=== PATIENT | female | born 1965 | race Caucasian/White ===

== ENCOUNTER 2016-05-29 16:35 | Emergency (ER) | payer OTHER ==
[~2016-05-29] VITALS: Ht 167.6 cm; Wt 114.0 kg
[~2016-05-29 16:35] MED LIST: ACET1TAB40 PO; ALBU18HF IH; AUG875 PO; BEN25 PO; CYCL-319 PO; HYDR-3498 PO; IBUP-1542 PO; LORA10CA PO; LOSA100T7 PO; MED4DP PO; METO25TA4 PO; MOME13HF IH; MONT10TA24 PO; OSLT75C PO; PRED20TA PO; PRED50TA PO; TIOT18CA IH; TRAM50TA2 PO
[2016-05-29 16:38] VITALS: Ht 167.6 cm; Wt 114.0 kg
[2016-05-29 22:29] LABS: ADD SCAN DIFF NO
[2016-05-29 22:30] VITALS: TEMP 98.6
[2016-05-29] MEDS ORDERED: LABETALOL HCL 20MG INJ IV ONE (22:30)
[2016-05-29 22:39] LABS: BASOPHIL # 0.1 10^3/ul (0.0-0.1); BASOPHILS % 0.9 % (0.0-2.0); EOSINOPHILS # 0.2 10^3/ul (0.0-0.5); EOSINOPHILS % 3.7 % (0.0-7.0); HEMATOCRIT 43.3 % (37.0-47.0); HEMOGLOBIN 14.1 g/dl (12.0-16.0); LYMPHOCYTES # 1.7 10^3/ul (0.8-2.9); LYMPHOCYTES % 28.4 % (15.0-51.0); MEAN CORPUSCULAR HEMOGLOBIN 27.2 pg (29.0-33.0); MEAN CORPUSCULAR HGB CONC 32.6 g/dl (32.0-37.0); MEAN CORPUSCULAR VOLUME 83.4 fl (82.0-101.0); MEAN PLATELET VOLUME 11.1 fl (7.4-10.4); MONOCYTE # 0.6 10^3/ul (0.3-0.9); MONOCYTES % 10.7 % (0.0-11.0); NEUTROPHIL # 3.3 10^3/ul (1.6-7.5); NEUTROPHILS % 55.8 % (39.0-77.0); PLATELET COUNT 292 10^3/UL (140-415); RED BLOOD COUNT 5.19 10^6/ul (4.20-5.40); RED CELL DISTRIBUTION WIDTH 13.6 % (11.5-14.5); WHITE BLOOD COUNT 5.9 10^3/ul (4.8-10.8)
[2016-05-29 22:41] LABS: ALBUMIN 4.4 g/dl (3.3-4.9); CHLORIDE 96 mmol/L (97-110); SODIUM 140 mmol/L (135-144)
[2016-05-29] MEDS ORDERED: RAMI5CAP46 PO (22:41)
[2016-05-29] MEDS ORDERED: FLUT1AER INHALATION (22:41)
[2016-05-29] MEDS ORDERED: BENA20TA48 PO (22:41)
[2016-05-29 22:42] LABS: POTASSIUM 3.5 mmol/L (3.5-5.1)
[2016-05-29] MEDS ORDERED: METH10TA5 PO (22:42)
[2016-05-29] MEDS ORDERED: HYDR50TA3 PO (22:42)
[2016-05-29 22:43] LABS: INR 0.92; PROTIME 12.4 Sec (12.2-14.2)
[2016-05-29 22:44] LABS: ALANINE AMINOTRANSFERASE 56 IU/L (13-69); ALBUMIN/GLOBULIN RATIO 1.18; ALKALINE PHOSPHATASE 85 IU/L (42-121); ANION GAP 16 (8-16); ASPARTATE AMINO TRANSFERASE 54 IU/L (15-46); BILIRUBIN,INDIRECT 0.2 mg/dl (0-1.1); BILIRUBIN,TOTAL 0.2 mg/dl (0.2-1.3); BLOOD UREA NITROGEN 12 mg/dl (7-20); CARBON DIOXIDE 32 mmol/L (21-31); CREATININE 0.45 mg/dl (0.44-1.00); GLUCOSE 105 mg/dl (70-220); PARTIAL THROMBOPLASTIN TIME 28.8 Sec (25.0-35.0); TOTAL PROTEIN 8.1 g/dl (6.1-8.1)
[2016-05-29 22:45] LABS: CALCIUM 9.7 mg/dl (8.4-10.2)
[2016-05-29 22:53] LABS: B-TYPE NATRIURETIC PEPTIDE 43 PG/ML (0-125)
[2016-05-29] MEDS ORDERED: FUROSEMIDE 40 MG INJ IV ONE (23:00)
--- NOTE | 2016-05-29 23:05 | ERD ---
ER Documentation Chief Complaint Date/Time DATE: 05/29/16 TIME: 22:56 Chief Complaint complains of weakness, tired and swelling of the lower extremities HPI 51-year-old female with a history of hypertension, hyperthyroidism, asthma, and diastolic heart dysfunction grade 1 presenting with bilateral lower extremity swelling for about 4 days. She was seen by long chain quiller tender 1 week ago and was started on amlodipine and furosemide. After she started these medications, she feels like her leg started swelling. She went to her primary care doctor yesterday who told her to stop those medications and start benazepril. She also stopped her hydrochlorothiazide. the patient went to fill her benazepril but has not taken it yet. Today she came in because her swelling is getting worse instead of better and she has associated pain in her legs from the swelling. She also complains of generalized body aches and mild headache. No chest pain or shortness of breath. No dizziness, vision disturbance, or diaphoresis. She is urinating normally. ROS All systems reviewed and are negative except as per history of present illness. Medications Home Meds Reported Medications Hydrochlorothiazide* (Hydrochlorothiazide*) 50 Mg Tab, 50 MG PO DAILY, #30 TAB 05/29/16 Methimazole* (Methimazole*) 10 Mg Tablet, 10 MG PO DAILY, TAB 05/29/16 Ramipril (Ramipril) 5 Mg Capsule, 5 MG PO DAILY, CAP 05/29/16 Fluticasone-Vilanterol (Breo Ellipta Inhaler) 100-25 Mcg/Actuation Aer.pow.ba, 1 PUFF INHALATION DAILY, #1 INHALER 05/29/16 Benazepril Hcl* (Benazepril Hcl*) 20 Mg Tablet, 20 MG PO DAILY, #30 TAB 05/29/16 Discontinued Reported Medications Losartan Potassium* (Losartan Potassium*) 100 Mg Tablet, 100 MG PO DAILY, TAB 03/06/15 Montelukast Sodium* (Montelukast Sodium*) 10 Mg Tablet, 10 MG PO HS, TAB 03/23/14 Mometasone-Formoterol (Dulera) 200-5 Mcg/Inh - 13 Gm Hfa.aer.ad, 2 PUFFS IH BID , EA 03/23/14 Tiotropium [place]* (Spiriva*) 18 Mcg Cap.w.dev, 1 INH IH QAM, EA 03/23/14 Albuterol Sulfate* (Ventolin HFA*) 18 Gm Hfa.aer.ad, 2 PUFF IH DAILY Y for WHEEZING AND RESP DISTRESS, EA 03/23/14 Discontinued Scripts Tramadol HCl (Tramadol HCl) 50 Mg Tablet, 50 MG PO Q4 Y for PAIN, #20 TAB Prov:EMELIA JENNINGS MD 09/24/15 Methylprednisolone* (Medrol* DOSE PACK) 4 Mg/Dose-Pack Tab.ds.pk, 4 MG PO . DIRECTED for 6 Days, PACKET Prov:SELVIN MONK 08/10/15 Oseltamivir Phosphate* (Tamiflu*) 75 Mg Capsule, 75 MG PO BID for 5 Days, CAP Prov:YOEL MCNALLY S. 07/17/15 Prednisone* (Prednisone*) 20 Mg Tab, 40 MG PO DAILY for 4 Days, TAB Prov:YOEL MCNALLY S. 07/17/15 Prednisone* (Prednisone*) 50 Mg Tablet, 50 MG PO DAILY, #7 TAB Prov:MORELIA IRAHETA DO 03/06/15 Diphenhydramine Hcl* (Benadryl*) 25 Mg Cap, 25 MG PO Q6, #30 CAP Prov:MORELIA IRAHETA DO 03/06/15 Metoprolol Tartrate* (Lopressor*) 25 Mg Tablet, 25 MG PO BID, #60 TAB Prov:MORELIA IRAHETA DO 03/06/15 Loratadine* (Claritin*) 10 Mg Capsule, 10 MG PO DAILY, #30 CAP Prov:MORELIA IRAHETA DO 03/06/15 Amoxicillin-Clavulanate K* (Augmentin*) 875 Mg Tab, 875 MG PO BID, #20 TAB Prov:MORELIA IRAHETA DO 03/06/15 Acetaminophen-Codeine* (Acetaminophen-Cod #3*) 300-30 Mg Tab, 1 TAB PO Q4H Y for PAIN, #20 TAB Prov:MORELIA IRAHETA DO 03/06/15 Cyclobenzaprine Hcl* (Cyclobenzaprine Hcl*) 10 Mg Tablet, 10 MG PO TID, #20 TAB Prov:EMELIA JENNINGS MD 01/16/15 Hydrocodone Bit-Acetaminophen* ([place]*) 5-325 Mg Tab, 1 TAB PO Q6 Y for PAIN, # 14 TAB Prov:EMELIA JENNINGS MD 01/16/15 Ibuprofen* (Motrin*) 600 Mg Tab, 600 MG PO Q6, #20 TAB Prov:EMELIA JENNINGS MD 01/16/15 Allergies Allergies: Coded Allergies: No Known Drug Allergies (Verified Allergy, Unknown, 05/29/16) PMhx/Soc History of Surgery: Yes ( 2005, Sinus Sx) Anesthesia Reaction: No Hx Neurological Disorder: No (HYPOTHYROID) Hx Respiratory Disorders: Yes (Asthma) Hx Cardiac Disorders: Yes (HTN) Hx Psychiatric Problems: No (Depression) Hx Miscellaneous Medical Probl: No (Thyroid) Hx Alcohol Use: No Hx Substance Use: No Hx Tobacco Use: No FmHx Family History: No diabetes Physical Exam Vitals Vital Signs Date Time Temp Pulse Resp B/P Pulse Ox O2 Delivery O2 Flow Rate FiO2 05/29/16 23:53 83 17 133/63 97 Room Air 05/29/16 23:10 77 15 176/89 100 Room Air 05/29/16 22:30 98.6 73 20 188/93 98 Room Air 05/29/16 16:38 98.6 83 20 235/110 98 Physical Exam Const: Obese, no apparent distress, nontoxic Head: Atraumatic Eyes: Normal Conjunctiva, Krista, EOMI ENT: Normal External Ears, Nose and Mouth. Neck: Full range of motion No meningismus. Resp: Clear to auscultation bilaterally Cardio: Regular rate and rhythm, no murmurs Abd: Soft, non tender, non distended. Normal bowel sounds Skin: No petechiae or rashes Back: No midline or flank tenderness Ext: No cyanosis. 1+ pitting edema up to mid miguel. 2+ radial pulses bilaterally. 2+ DP and PT pulses bilaterally. Neur: Awake and alert and oriented 3, cranial nerves intact, strength and sensations intact in all 4 extremities, normal gait Psych: Normal Mood and Affect Result Diagram: 05/29/16221705/29/162217 Results 24 hrs Laboratory Tests Test 05/29/16 22:18 05/29/16 22:40 Activated Partial Thromboplast Time 28.8Sec Alanine Aminotransferase (ALT/SGPT) 56IU/L Albumin 4.4g/dl Albumin/Globulin Ratio 1.18 Alkaline Phosphatase 85IU/L Anion Gap 16 Aspartate Amino Transf (AST/SGOT) 54IU/L B-Type Natriuretic Peptide 43PG/ML Basophils # 0.110^3/ul Basophils % 0.9% Blood Urea Nitrogen 12mg/dl Calcium Level 9.7mg/dl Carbon Dioxide Level 32mmol/L Chloride Level 96mmol/L Creatinine 0.45mg/dl Direct Bilirubin 0.00mg/dl Eosinophils # 0.210^3/ul Eosinophils % 3.7% Globulin 3.70g/dl Glucose Level 105mg/dl Hematocrit 43.3% Hemoglobin 14.1g/dl INR International Normalized Ratio 0.92 Indirect Bilirubin 0.2mg/dl Lymphocytes # 1.710^3/ul Lymphocytes % 28.4% Mean Corpuscular Hemoglobin 27.2pg Mean Corpuscular Hemoglobin Concent 32.6g/dl Mean Corpuscular Volume 83.4fl Mean Platelet Volume 11.1fl Monocytes # 0.610^3/ul Monocytes % 10.7% Neutrophils # 3.310^3/ul Neutrophils % 55.8% Nucleated Red Blood Cells # 0.010^3/ul Nucleated Red Blood Cells % 0.0/100WBC Platelet Count 43316^3/UL Potassium Level 3.5mmol/L Prothrombin Time 12.4Sec Prothrombin Time Ratio 1.0 Red Blood Count 5.1910^6/ul Red Cell Distribution Width 13.6% Sodium Level 140mmol/L Total Bilirubin 0.2mg/dl Total Protein 8.1g/dl Troponin I < 0.012ng/ml White Blood Count 5.910^3/ul Urine Bacteria FEW Urine Bilirubin NEGATIVE Urine Clarity SLIGHTLY CLOUDY Urine Color LT. YELLOW Urine Glucose NEGATIVE% Urine Hemoglobin TRACE Urine Ketones NEGATIVE Urine Leukocyte Esterase 1+ Urine Microscopic RBC 0-2/HPF Urine Microscopic WBC 2-5/HPF Urine Nitrite NEGATIVE Urine Specific [place] 1.010 Urine Squamous Epithelial Cells MODERATE Urine Total Protein NEGATIVE Urine Urobilinogen 0.2 E.U./dL Urine pH 7.5 Current Medications Medications (Trade) Dose Ordered Sig/Edson Route PRN Reason Start Time Stop Time Status Last Admin Dose Admin Labetalol HCl (Labetalol) 20 mg ONCE ONCE IV 05/29/16 22:30 05/29/16 22:31 DC Furosemide (Lasix) 40 mg ONCE ONCE IV 05/29/16 23:00 05/29/16 23:01 DC 05/29/16 23:15 Procedures/MDM EKG #1: Rate/Rhythm: Normal Sinus Rhythm QRS, ST, T-waves: Nonspecific ST and T abnormality, no ST elevation Impression: No evidence of ischemia or arrhythmia EKG #2: Rate/Rhythm: Normal Sinus Rhythm QRS, ST, T-waves: No changes consistent w/ acute ischemia Impression: No evidence of ischemia or arrhythmia I reviewed the patient's old medical records and her last echo was done in 2013 and showed diastolic grade 1 dysfunction of her heart within normal ejection fraction of 60%. Patient is reportedly awaiting another echocardiogram soon. She presented today with a significantly elevated blood pressure over 230/110. Labetalol was ordered however the patient's blood pressure decreased to 188/93 without any intervention. Labetalol was held. EKG was done and showed some nonspecific ST abnormalities. The EKG was repeated and was normal without any evidence of ischemia. Her chest x-ray does not show acute CHF. Her labs are within normal limits without any evidence of endorgan dysfunction. Her troponin was within normal limits. I had the patient take her benazepril 20 mg that she was prescribed while in the ED. I also gave her Lasix 40 mg IV. Her repeat blood pressure was 133/63. She appears stable without evidence of hypertension emergency or urgency. The patient was counseled about the risks of hypertension and urged to pursue outpatient monitoring and therapy within a week with their primary care physician. I also advised her to restart her furosemide in the meantime. Departure Diagnosis: Primary Impression: Uncontrolled hypertension Additional Impression: Bilateral lower extremity edema Condition: Stable EKGIGI MORALES MD May 29, 2016 23:05
[2016-05-29 23:06] LABS: TROPONIN-I < 0.012 ng/ml (0.00-0.12)
--- NOTE | 2016-05-29 23:15 | RADRPT ---
PROCEDURE: XR Chest. CLINICAL INDICATION: Shortness of breath. TECHNIQUE: Single frontal chest x-ray. COMPARISON: 08/10/2015 FINDINGS: Heart is enlarged.. Pulmonary vessels are top normal caliber without gross CHF.. Minimal plate-like atelectasis in the left mid lung field.. There is no pleural effusion. There is no pneumothorax. There are degenerative changes of the thoracic spine.. IMPRESSION: Cardiomegaly. Pulmonary vessels top normal in caliber. Minimal plate-like atelectasis left mid linsey g field. RPTAT: HMVK .J Luis Lloyd MD, Date Time Electronically viewed and signed by .J Luis Lloyd MD, on 05/29/2016 23:14 .K/
[2016-05-29 23:21] LABS: ADD UMIC YES; URINE BILIRUBIN (Dip) NEGATIVE (NEGATIVE); URINE BLOOD (Dip) TRACE (NEGATIVE); URINE COLOR LT. YELLOW (YELLOW); URINE GLUCOSE (Dip) NEGATIVE (NEGATIVE); URINE KETONES (Dip) NEGATIVE (NEGATIVE); URINE LEUKOCYTE ESTERASE (Dip) 1+ (NEGATIVE); URINE NITRITE (Dip) NEGATIVE (NEGATIVE); URINE TOTAL PROTEIN (Dip) NEGATIVE (NEGATIVE); URINE UROBILINOGEN (Dip) 0.2 E.U./dL (0.1-1.0)
[2016-05-29 23:53] VITALS: BP 133/63; PULSE 83; RESP 17
[2016-05-30 00:56] LABS: BACTERIA,URINE FEW; SQUAMOUS EPITHELIAL CELL,UR MODERATE; URINE RBCS 0-2 /HPF (0)
== END 2016-05-30 00:25 | disposition home or self-care (01) ==
LOC: E/R 16:35
DX: I10 Essential (primary) hypertension (principal); R22.41 Localized swelling, mass and lump, right lower limb; J45.909 Unspecified asthma, uncomplicated; E03.9 Hypothyroidism, unspecified; R06.02 Shortness of breath
CPT/HCPCS: 36415; 71010; 80053; 81001; 83880; 84484; 85025; 85610; 85730; 93005; 96374; J1940; Z7502; Z7610; 81003

== ENCOUNTER 2017-01-02 07:18 | Emergency (ER) | payer OTHER ==
[~2017-01-02] VITALS: Wt 110.0 kg
[~2017-01-02 07:18] MED LIST changes: -ACET1TAB40 PO; -ALBU18HF IH; -AUG875 PO; -BEN25 PO; +BENA20TA48 PO; -CYCL-319 PO; +FLUT1AER INHALATION; -HYDR-3498 PO; +HYDR50TA3 PO; -IBUP-1542 PO; -LORA10CA PO; -LOSA100T7 PO; -MED4DP PO; +METH10TA5 PO; -METO25TA4 PO; -MOME13HF IH; -MONT10TA24 PO; -OSLT75C PO; -PRED20TA PO; -PRED50TA PO; +RAMI5CAP46 PO; -TIOT18CA IH; -TRAM50TA2 PO
--- NOTE | 2017-01-02 07:46 | ERA ---
ER Documentation Chief Complaint Date/Time DATE: 01/02/17 TIME: 07:42 Chief Complaint GENERALIZED NUMBNESS SINCE THIS AM AT 630 HPI 51-year-old female history of morbid obesity, essential hypertension who presents to the emergency room stating that she has generalized numbness. She states that she woke up this morning around 6:30 AM and was numb to her entire body. She states that she could not move her right hand. The symptoms have since improved however the patient still describes some generalized paresthesias. She states that she has not been taking her blood pressure medications regularly. She also describes headache over the last several days that is gradual, diffuse and 2 out of 10. She denies any chest pain or shortness of breath, no fevers or chills. ROS All systems reviewed and are negative except as per history of present illness. Medications Home Meds Reported Medications Fluticasone/Vilanterol (Breo Ellipta 200-25 Mcg INH) 1 Each Blst.w.dev, 1 PUFF INHALATION DAILY, #1 INHALER 01/02/17 Metoprolol Tartrate* (Lopressor*) 25 Mg Tablet, 25 MG PO BID, #60 TAB 01/02/17 Hydrochlorothiazide* (Hydrochlorothiazide*) 50 Mg Tab, 50 MG PO DAILY, #30 TAB 01/02/17 Discontinued Reported Medications Hydrochlorothiazide* (Hydrochlorothiazide*) 50 Mg Tab, 50 MG PO DAILY, #30 TAB 05/29/16 Methimazole* (Methimazole*) 10 Mg Tablet, 10 MG PO DAILY, TAB 05/29/16 Ramipril (Ramipril) 5 Mg Capsule, 5 MG PO DAILY, CAP 05/29/16 Fluticasone-Vilanterol (Breo Ellipta Inhaler) 100-25 Mcg/Actuation Aer.pow.ba, 1 PUFF INHALATION DAILY, #1 INHALER 05/29/16 Benazepril Hcl* (Benazepril Hcl*) 20 Mg Tablet, 20 MG PO DAILY, #30 TAB 05/29/16 Allergies Allergies: Coded Allergies: No Known Drug Allergies (Verified Allergy, Unknown, 01/02/17) PMhx/Soc History of Surgery: Yes ( 2004, Sinus Sx) Anesthesia Reaction: No Hx Neurological Disorder: No (HYPOTHYROID) Hx Respiratory Disorders: Yes (Asthma) Hx Cardiac Disorders: Yes (HTN) Hx Psychiatric Problems: No (Depression) Hx Miscellaneous Medical Probl: No (Thyroid) Hx Alcohol Use: No Hx Substance Use: No Hx Tobacco Use: No Smoking Status: Never smoker FmHx Family History: No diabetes Physical Exam Vitals Vital Signs Date Time Temp Pulse Resp B/P Pulse Ox O2 Delivery O2 Flow Rate FiO2 01/02/17 08:50 98.1 52 16 181/83 96 Room Air 01/02/17 07:20 98.0 64 18 242/107 96 Physical Exam General: Well developed, well nourished, no acute distress Head: Normocephalic, atraumatic. Eyes: Pupils equally reactive, EOM intact ENT: Moist mucous membranes Neck: Supple, no lymphadenopathy Respiratory: Lungs clear bilaterally, no distress Cardiovascular: RRR, no murmurs, rubs, or gallops Abdominal: Soft, non-tender, non-distended, no peritoneal signs : Deferred MSK: No edema, no unilateral swelling, 5/5 strength, Full function of the right hand including 5 out of 5 hand grasp strength, radial, median, ulnar nerves intact, no pronator drift Neurologic: Alert and oriented, moving all extremities, normal speech, no focal weakness, no cerebellar signs, Normal rapid alternating movements Skin: No rash Psych: Normal mood Result Diagram: 01/02/17 0750 01/02/17 0750 Results 24 hrs Laboratory Tests Test 01/02/17 07:50 01/02/17 08:20 White Blood Count 4.910^3/ul Red Blood Count 4.9610^6/ul Hemoglobin 13.8g/dl Hematocrit 42.3% Mean Corpuscular Volume 85.3fl Mean Corpuscular Hemoglobin 27.8pg Mean Corpuscular Hemoglobin Concent 32.6g/dl Red Cell Distribution Width 14.3% Platelet Count 77055^3/UL Mean Platelet Volume 11.3fl Neutrophils % 46.0% Lymphocytes % 37.8% Monocytes % 10.3% Eosinophils % 4.9% Basophils % 0.6% Nucleated Red Blood Cells % 0.0/100WBC Neutrophils # 2.210^3/ul Lymphocytes # 1.810^3/ul Monocytes # 0.510^3/ul Eosinophils # 0.210^3/ul Basophils # 0.010^3/ul Nucleated Red Blood Cells # 0.010^3/ul Prothrombin Time 12.8Sec Prothrombin Time Ratio 1.0 INR International Normalized Ratio 0.96 Activated Partial Thromboplast Time 31.2Sec Sodium Level 141mmol/L Potassium Level 3.4mmol/L Chloride Level 105mmol/L Carbon Dioxide Level 28mmol/L Anion Gap 11 Blood Urea Nitrogen 11mg/dl Creatinine 0.49mg/dl Glucose Level 95mg/dl Hemoglobin A1c 5.8% Calcium Level 9.1mg/dl Troponin I < 0.012ng/ml Serum HCG, Qualitative NEGATIVE Urine Color YELLOW Urine Clarity SLIGHTLY CLOUDY Urine pH 7.0 Urine Specific [place] 1.010 Urine Ketones NEGATIVEmg/dL Urine Nitrite NEGATIVEmg/dL Urine Bilirubin NEGATIVEmg/dL Urine Urobilinogen NEGATIVEmg/dL Urine Leukocyte Esterase 1+Geoffrey/ul Urine Microscopic RBC 2/HPF Urine Microscopic WBC 7/HPF Urine Squamous Epithelial Cells FEW/HPF Urine Bacteria FEW/HPF Urine Mucus FEW/HPF Urine Hemoglobin NEGATIVEmg/dL Urine Glucose NEGATIVEmg/dL Urine Total Protein NEGATIVEmg/dl Urine Opiates Screen Negative Urine Barbiturates Negative Urine Amphetamines Screen Negative Urine Benzodiazepines Screen Negative Urine Cocaine Screen Negative Urine Cannabinoids Negative Current Medications Medications (Trade) Dose Ordered Sig/Edson Route PRN Reason Start Time Stop Time Status Last Admin Dose Admin Aspirin (Aspirin) 162 mg ONCE ONCE PO 01/02/17 09:00 01/02/17 09:01 DC 01/02/17 09:12 Procedures/MDM EKG, MONITORS, & DIAGNOSTIC IMAGING: EKG: I reviewed and interpreted a 12-lead EKG. Rhythm: Normal sinus rhythm Ectopy: None Arrhythmia: None Intervals: No abnormalities ST segments: No elevations or depressions T waves: No contiguous inversions Interpretation: No acute cardiac ischemia Chest x-ray: I reviewed and interpreted a 1 view of the chest Mediastinum: No enlargement Cardiac silhouette: No cardiomegaly Airspace: Clear lung gutierrez bilaterally without evidence of pneumothorax Bones: No evidence of fracture Interpretation: No acute cardiopulmonary process CT Brain: No evidence of acute intracranial process per radiology read LAB INTERPRETATION: No leukocytosis MEDICAL DECISION MAKING: The patient's symptoms are concerning for TIA. She presents with significant hypertension and noncompliance with her blood pressure medication. She describes Nonfunction of the right hand that has since resolved. This is very consistent with TIA. The patient has no signs or symptoms of active deficit therefore no indication for stroke code activation. Management of blood pressure would be appropriate with observation of permissive hypertension, her blood pressure has trended down to the 190s during my examination. This is without intervention. ER COURSE: Stroke assessment and timing: Onset of symptoms: Woke up around 6:30 AM with the symptoms NIHSS: 0 TPA decision-making: The patient is not a TPA candidate given nonfocal exam, complete resolution of symptoms. Risks outweigh the benefits. Critical Care Note: Total time: 35min Indication/Organ System Threat: Acute neurologic deficit that requires emergent evaluation and assessment to prevent neurologic compromising collapse. I spent the above amount of critical care time with the patient, not including billable procedures. This included chart review, consultations, repeat bedside evaluations, and titration of appropriate medications to prevent cardiopulmonary or respiratory collapse. The patient's blood pressure has had an appropriate reduction with mean arterial pressure reduced by 20%. No indication for further lowering, permissive hypertension appropriate. I kept the patient and/or family informed of laboratory and diagnostic imaging results throughout the emergency room course. DISPOSITION PLAN: Telemetry admission for management of TIA, hypertensive urgency or emergency The patient is capitated to [facility]. The patient is agreeable to transfer. The benefits outweigh the risks. She is stable for transfer. CONSULTATION: Accepting care team and consultations: I discussed the current laboratory data, diagnostic imaging and emergency care provided. Admitting team: Dr. Barron will be the accepting team. Dr. Cintron has been coordinating transfer [employer] Departure Diagnosis: Primary Impression: Transient ischemic attack Qualified Code: G45.9 - Transient cerebral ischemia, unspecified type Additional Impressions: Paresthesia Hypertensive emergency Morbid obesity Noncompliance with medication regimen Condition: Stable JULIO CESAR CR MD Jan 02, 2017 07:46
--- NOTE | 2017-01-02 08:01 | RADRPT ---
PROCEDURE: Chest Radiograph. CLINICAL INDICATION: Stroke TECHNIQUE: Single frontal chest radiograph. COMPARISON: Chest radiograph 05/29/2016 FINDINGS: The heart is magnified. Atherosclerotic calcifications are present. No infiltrate or effusion is s een. The bones are intact. IMPRESSION: 1. No evidence of acute cardiopulmonary disease. 2. Atherosclerotic vascular disease. RPTAT: HJBF .Cruz Garcia MD, MD Date Time Electronically viewed and signed by .Cruz Garcia MD, MD on 01/02/2017 08:01 .B/
[2017-01-02] MEDS ORDERED: FLUT1BLS INHALATION (08:10)
[2017-01-02] MEDS ORDERED: METO25TA4 PO (08:10)
[2017-01-02] MEDS ORDERED: HYDR50TA3 PO (08:10)
--- NOTE | 2017-01-02 08:21 | RADRPT ---
PROCEDURE: CT Brain without contrast. CLINICAL INDICATION: Right-sided numbness TECHNIQUE: A CT of the brain was performed on a GE Bracketzpeed 64-slice CT scanner utilizing axial imaging from the skull base through the vertex without IV contrast. Multiplanar reformatted images were made. Images were reviewed on a PACS workstation. The CTDIvol is 43.86 mGy and the DLP is 63 0.2 mGycm. One or more of the following dose reduction techniques were used: automated exposure con trol, adjustment of the mA and/or kV according to patient size, or use of iterative reconstruction t echnique. COMPARISON: 07/17/2015, 03/06/2015 FINDINGS: There is no intracranial hemorrhage, mass effect, or midline shift. No extra-axial fluid collection is seen. The ventricles and sulci are normal in size and configuration. The density of the brain is normal, and the marquez white matter differentiation appears well-preserved. The brainstem and posteri or fossa are normal. There interval decrease sinus mucosal thickening. The calvarium is normal. IMPRESSION: 1. No evidence of acute intracranial pathology. 2. Improved sinus disease. RPTAT: HCNS Physician Daria Date Time Electronically viewed and signed by Physician Daria on 01/02/2017 08:21 /
[2017-01-02 08:45] LABS: BASOPHILS % 0.6 % (0.0-2.0); EOSINOPHILS # 0.2 10^3/ul (0.0-0.5); EOSINOPHILS % 4.9 % (0.0-7.0); HEMATOCRIT 42.3 % (37.0-47.0); HEMOGLOBIN 13.8 g/dl (12.0-16.0); LYMPHOCYTES # 1.8 10^3/ul (0.8-2.9); LYMPHOCYTES % 37.8 % (15.0-51.0); MEAN CORPUSCULAR HEMOGLOBIN 27.8 pg (29.0-33.0); MEAN CORPUSCULAR HGB CONC 32.6 g/dl (32.0-37.0); MEAN CORPUSCULAR VOLUME 85.3 fl (82.0-101.0); MEAN PLATELET VOLUME 11.3 fl (7.4-10.4); MONOCYTE # 0.5 10^3/ul (0.3-0.9); MONOCYTES % 10.3 % (0.0-11.0); NEUTROPHIL # 2.2 10^3/ul (1.6-7.5); PLATELET COUNT 252 10^3/UL (140-415); RED BLOOD COUNT 4.96 10^6/ul (4.20-5.40); RED CELL DISTRIBUTION WIDTH 14.3 % (11.5-14.5); WHITE BLOOD COUNT 4.9 10^3/ul (4.8-10.8)
[2017-01-02] MEDS ORDERED: ASPIRIN 81 MG TAB PO ONE (09:00)
[2017-01-02 09:01] LABS: ANION GAP 11 (8-16); BLOOD UREA NITROGEN 11 mg/dl (7-20); CALCIUM 9.1 mg/dl (8.4-10.2); CARBON DIOXIDE 28 mmol/L (21-31); CHLORIDE 105 mmol/L (97-110); CREATININE 0.49 mg/dl (0.44-1.00); GLUCOSE 95 mg/dl (70-220); POTASSIUM 3.4 mmol/L (3.5-5.1); SODIUM 141 mmol/L (135-144)
[2017-01-02 09:08] LABS: INR 0.96; PROTIME 12.8 Sec (12.2-14.2)
[2017-01-02 09:09] LABS: PARTIAL THROMBOPLASTIN TIME 31.2 Sec (25.0-35.0)
[2017-01-02 09:11] LABS: ADD UMIC YES; UR ASCORBIC ACID NEGATIVE (NEGATIVE); UR BACTERIA FEW /HPF (NONE SEEN); UR BILIRUBIN (Dip) NEGATIVE (NEGATIVE); UR BLOOD (Dip) NEGATIVE (NEGATIVE); UR CLARITY SLIGHTLY CLOUDY (CLEAR); UR COLOR YELLOW (YELLOW); UR GLUCOSE (Dip) NEGATIVE (NEGATIVE); UR KETONES (Dip) NEGATIVE (NEGATIVE); UR LEUKOCYTE ESTERASE (Dip) 1+ Leu/ul (NEGATIVE); UR MUCUS FEW /HPF (NONE SEEN); UR NITRITE (Dip) NEGATIVE (NEGATIVE); UR RBC 2 /HPF (0-5); UR SQUAMOUS EPITHELIAL CELL FEW /HPF (FEW); UR TOTAL PROTEIN (Dip) NEGATIVE (NEGATIVE); UR UROBILINOGEN (Dip) NEGATIVE (NEGATIVE)
[2017-01-02 09:13] LABS: TROPONIN-I < 0.012 ng/ml (0.00-0.12)
[2017-01-02 09:34] LABS: BARBITURATES Negative (NEGATIVE); BENZODIAZEPINES Negative (NEGATIVE); CANNABINOIDS Negative (NEGATIVE); COCAINE Negative (NEGATIVE); OPIATES Negative (NEGATIVE)
[2017-01-02 14:09] VITALS: BP 168/84; PULSE 59; RESP 18; TEMP 98.1
== END 2017-01-02 14:20 | disposition short-term general hospital (02) ==
LOC: E/R 07:18
DX: G45.9 Transient cerebral ischemic attack, unspecified (principal); R20.2 Paresthesia of skin; I16.1 Hypertensive emergency; I10 Essential (primary) hypertension; E66.01 Morbid (severe) obesity due to excess calories; E03.9 Hypothyroidism, unspecified; J45.909 Unspecified asthma, uncomplicated; Z91.14 Patient's other noncompliance with medication regimen
CPT/HCPCS: 36415; 70450; 71010; 80048; 80307; 81001; 83036; 84484; 84703; 85025; 85610; 85730; 93005; Z7502; Z7610

== ENCOUNTER 2017-11-21 23:10 | Emergency (ER) | END 2017-11-22 03:35 | disposition home or self-care (01) ==

== ENCOUNTER 2017-12-14 10:09 | Emergency (ER) | END 2017-12-14 12:39 | disposition home or self-care (01) ==